=== PATIENT | male | born 1965 | race Two or more races ===

== ENCOUNTER → 2018-06-02 | Outpatient (CLI) | payer OTHER ==
[2018-06-02 19:22] LABS: VANC TR 19.4 mcg/mL (10.0-20.0)
== END | disposition home or self-care (01) ==
LOC: SPEC 19:02 → EEVIPCON 19:02
PROVIDERS: ATTEND Family Medicine
DX: Z00.00 Encounter for general adult medical examination without abnormal findings (principal); Z22.322 Carrier or suspected carrier of Methicillin resistant Staphylococcus aureus
CPT/HCPCS: 36415; 80202